=== PATIENT | female | born 1970 | race Caucasian/White ===

== ENCOUNTER → 2018-04-07 | Outpatient (CLI) | payer BC | LOC: M.RAD 13:53 | DX: Z12.31 Encounter for screening mammogram for malignant neoplasm of breast (principal) ==

== ENCOUNTER 2020-09-09 12:17 | Emergency (ER) | payer BC ==
[~2020-09-09] VITALS: Ht 167.6 cm; Wt 74.8 kg
[2020-09-09] MEDS ORDERED: PLAQUENIL200 MG PO (12:34)
[2020-09-09] MEDS ORDERED: ACYCLOVIR 200200 MG PO (12:34)
[2020-09-09] MEDS ORDERED: AMITRIPTYLINE H50 M2 PO (12:34)
[2020-09-09] MEDS ORDERED: IMURAN 50MG TAB50 M1 PO (12:34)
[2020-09-09] MEDS ORDERED: WELLBUTRIN SR100 MG PO (12:35)
[2020-09-09] MEDS ORDERED: NORCO5 PO (13:44)
[2020-09-09] MEDS ORDERED: IBUPROFEN 600600 M1 PO (13:45)
[2020-09-09 14:00] VITALS: BP 138/87
== END 2020-09-09 14:01 | disposition home or self-care (01) ==
LOC: M.ERS 12:17
DX: M25.561 Pain in right knee (principal)

== ENCOUNTER 2021-04-11 23:18 | Emergency (ER) | payer BC ==
[~2021-04-11] VITALS: Ht 167.6 cm; Wt 76.7 kg
[~2021-04-11 23:18] MED LIST: ACYCLOVIR 200200 MG PO; AMITRIPTYLINE H50 M2 PO; IBUPROFEN 600600 M1 PO; IMURAN 50MG TAB50 M1 PO; NORCO5 PO; PLAQUENIL200 MG PO; WELLBUTRIN SR100 MG PO
[2021-04-11 23:22] VITALS: BP 145/109
[2021-04-11 23:59] LABS: ABSOLUTE EOSINOPHILS 0.1 thou/uL (0.0-0.7); ABSOLUTE LYMPHOCYTES 1.3 thou/uL (0.8-5.3); ABSOLUTE MONOCYTES 0.6 thou/uL (0.0-1.2); ABSOLUTE NEUTROPHILS 2.6 thou/uL (1.6-8.1); EOSINOPHILS 1.4 %; HEMATOCRIT 38.6 % (37.0-47.0); HEMOGLOBIN 13.3 gm/dL (12.0-15.0); LYMPHOCYTES 27.8 %; MCH 30.1 pg (26.0-34.0); MCHC 34.5 g/dL (28.0-37.0); MCV 87.3 fL (80.0-100.0); MONOCYTES 13.8 %; MPV 7.9 fl. (7.2-11.1); NUCLEATED RBCS 0 /100WBC; PLATELET COUNT* 252 thou/uL (150-400); RBC 4.42 mil/uL (4.20-5.00); RDW-CV 13.5 % (10.5-14.5); WBC 4.7 thou/uL (4.0-11.0)
[2021-04-12 00:15] LABS: CALCIUM 8.6 mg/dL (8.5-10.1); CREATININE 0.8 mg/dL (0.6-1.3); POTASSIUM 3.2 mmol/L (3.5-5.1)
[2021-04-12 00:29] LABS: ALBUMIN 3.4 g/dL (3.4-5.0); TOTAL BILIRUBIN 0.4 mg/dL (<0.1-1.0); TOTAL PROTEIN 6.5 g/dL (6.4-8.2)
[2021-04-12 01:28] VITALS: BP 132/89
--- NOTE | 2021-04-12 17:26 | EKG ---
[place] [address] ELECTROCARDIOGRAM REPORT Name: DENAMARRY CHIORICCI Room: [facility] [place]#: [id number] Admission: 04/11/21 Attend Phys: Discharge: 04/12/21 Date of : 72 Date of Service: 04/11/21 232 Report #: [id number] THIS REPORT FOR: //name// [facility] ED Test Date: 2021-04-11 Test Time: 23:27:03 Pat Name: MARRY FERNANDES Department: Room: [facility] Gender: F Bar Back: : 1970 Requested By: Norma Costello Order Number: [id number] MD: Lars Birmingham Measurements Intervals [place] Rate: 87 P: -10 AK: 149 QRS: 1 QRSD: 92 T: 18 QT: 365 QTc: 439 Interpretive Statements Sinus rhythm Baseline wander in lead(s) I,III,aVL No previous ECG available for comparison Electronically Signed On 04-12-2021 17:25:48 CDT by Lars Birmingham [email or web address] <ELECTRONICALLY SIGNED> By: Lars Birmingham MD, FACC 04/12/21 1725 [id number] Lars Birmingham MD, FAC /EPI
== END 2021-04-12 01:29 | disposition home or self-care (01) ==
LOC: M.ERS 23:18 → M.TBA-ER 04-12 01:08 → M.ERS 04-12 01:08
PROVIDERS: Emergency Medicine
DX: R07.89 Other chest pain (principal); Z20.822 Contact with and (suspected) exposure to COVID-19; Z79.899 Other long term (current) drug therapy